=== PATIENT | female | born 1980 | race Caucasian/White ===

== ENCOUNTER 2021-11-26 04:33 | Emergency (ER) | payer OTHER ==
[2021-11-26] MEDS ORDERED: VIBRAMYCIN100 MG PO (08:31)
[2021-11-27 22:12] LABS: CHLAMYDIA TRACHOMATIS, NAA Positive (Negative); NEISSERIA GONORRHOEAE, NAA Negative (Negative)
[2021-12-02] MEDS ORDERED: TOPROL XL25 MG PO (10:31)
[2021-12-02] MEDS ORDERED: CLEOCIN HCL300 MG PO (10:31)
[2021-12-02] MEDS ORDERED: HYDROCODON-ACE1 EAC4 PO (10:31)
[2021-12-02] MEDS ORDERED: LEVOFLOXACIN500 MG PO (10:31)
== END 2021-11-26 08:55 | disposition home or self-care (01) ==
LOC: ER1 04:33
PROVIDERS: Physician Assistant
DX: R10.2 Pelvic and perineal pain (principal); Z20.2 Contact with and (suspected) exposure to infections with a predominantly sexual mode of transmission; F17.200 Nicotine dependence, unspecified, uncomplicated
CPT/HCPCS: 81001; 84703; 87210; 96372; 99283; J0696

== ENCOUNTER 2021-11-29 22:47 | Emergency (ER) | payer OTHER ==
[~2021-11-29 22:47] MED LIST: VIBRAMYCIN100 MG PO
[2021-11-29 23:29] LABS: HEMOGLOBIN 11.9 gm/dl (12.3-15.3); RED BLOOD COUNT 4.54 M/UL (4.00-5.10); WHITE BLOOD COUNT 8.5 K/UL (4.5-11.0)
[2021-11-30 00:04] LABS: BUN/CREATININE RATIO 10 (0-10)
[2021-11-30 10:32] LABS: HEMOGLOBIN 10.9 gm/dl (12.3-15.3); RED BLOOD COUNT 4.2 M/UL (4.00-5.10)
[2021-11-30 10:38] LABS: WHITE BLOOD COUNT 5.4 K/UL (4.5-11.0)
[2021-12-02] MEDS ORDERED: TOPROL XL25 MG PO (10:31)
[2021-12-02] MEDS ORDERED: LEVOFLOXACIN500 MG PO (10:31)
[2021-12-02] MEDS ORDERED: HYDROCODON-ACE1 EAC4 PO (10:31)
[2021-12-02] MEDS ORDERED: CLEOCIN HCL300 MG PO (10:31)
== END 2021-11-30 16:50 | disposition left against medical advice (07) ==
LOC: ER1 22:47 → CDU 11-30 14:09 → ER1 11-30 14:09
PROVIDERS: Physician Assistant; Student in an Organized Health Care Education/Training Program
DX: T82.897A Other specified complication of cardiac prosthetic devices, implants and grafts, initial encounter (principal); F41.9 Anxiety disorder, unspecified; F17.200 Nicotine dependence, unspecified, uncomplicated; D50.9 Iron deficiency anemia, unspecified; I25.10 Atherosclerotic heart disease of native coronary artery without angina pectoris; Y83.8 Other surgical procedures as the cause of abnormal reaction of the patient, or of later complication, without mention of misadventure at the time of the procedure
CPT/HCPCS: ECHO; 71045; 80053; 82550; 82553; 83880; 84484; 85025; 85027; 85610; 85730; 93005; 93306; 96374; 99285; J1644

== ENCOUNTER 2021-11-30 20:13 | Emergency (ER) | payer OTHER ==
[2021-12-02] MEDS ORDERED: LEVOFLOXACIN500 MG PO (10:31)
[2021-12-02] MEDS ORDERED: TOPROL XL25 MG PO (10:31)
[2021-12-02] MEDS ORDERED: CLEOCIN HCL300 MG PO (10:31)
[2021-12-02] MEDS ORDERED: HYDROCODON-ACE1 EAC4 PO (10:31)
== END 2021-12-01 03:30 | disposition left against medical advice (07) ==
LOC: ER1 20:13
DX: Z53.21 Procedure and treatment not carried out due to patient leaving prior to being seen by health care provider (principal)